=== PATIENT | female | born 1975 | race Caucasian/White ===

== ENCOUNTER 2017-03-02 15:20 | Emergency (ER) | payer OTHER ==
[~2017-03-02] VITALS: Ht 170.2 cm; Wt 73.6 kg
[~2017-03-02 15:20] MED LIST: COZA100T PO; LORA0.5T PO; OXYB5TAB PO
[2017-03-02 15:22] VITALS: BP 170/102; PULSE 74; RESP 12; TEMP 98.2; O2SAT 98
[2017-03-02] MEDS ORDERED: ACETAMINOPHEN 325 MG TAB PO ONE (15:45)
--- NOTE | 2017-03-02 15:50 | PD ---
HPI Chief Complaint: Headache Time Seen by Provider: 15:31 Travel History International Travel<30 days: No Contact w/Intl Traveler<30days: No Traveled to known affect area: No History of Present Illness HPI The patient is a 41-year-old female who presents emergency department for headache. The patient states she struck the left frontal aspect of her head over the left frontal bone and left temporal area yesterday on a cabinet while bending over. The patient states she then drained it once again with a cabinet doors open. She complains of pain over the affected area, now complains of a posterior headache as well as a frontal headache. She does complain of mild nausea but denies any vomiting. She does note mild photophobia, but denies any focal deficits. She does have one previous episode of a similar headache in the past, was told she had a migraine. She denies any weakness or numbness of the upper or lower extremities and denies taking any anticoagulants. The patient has been taking ibuprofen with mild the patient has been taking ibuprofen with mild alleviation of her symptoms. PFSH Past Medical History Asthma: No Blood Disorders: No Anxiety: No Depression: No Heart Rhythm Problems: No Cancer: No Cardiovascular Problems: Yes High Cholesterol: No Chemotherapy: No Chest Pain: No Congestive Heart Failure: No COPD: No Diabetes: No Diminished Hearing: No Endocrine: No Genitourinary: Yes (hx of kidney stones) Hepatitis: No Hiatal Hernia: No Hypertension: Yes Immune Disorder: No Kidney Stones: Yes Musculoskeletal: No Neurologic: No Psychiatric: No Reproductive: Yes Respiratory: No Radiation Therapy: No Sleep Apnea: No Thyroid Disease: No : 2 Para: 2 Past Surgical History AICD: No Section: Yes (X2) Gynecologic Surgery: Yes (x2 c-sections) Joint Replacement: No Pacemaker: No Social History Alcohol Use: Yes (socially) Tobacco Use: Yes (SOCIALLY) Substance Use: No Allergies-Medications (Allergen,Severity, Reaction): Coded Allergies: codeine (Verified Allergy, Unknown, 03/02/17) Reported Meds & Prescriptions Reported Meds & Active Scripts Active Reported Losartan (Losartan Potassium) 100 Mg Tab 100 Mg PO DAILY Review of Systems Except as stated in HPI: all other systems reviewed are Neg General / Constitutional: No: Fever Eyes: Positive: Photophobia, No: Blurred Vision HENT: Positive: Headaches, Neck Pain Cardiovascular: No: Chest Pain or Discomfort Respiratory: No: Shortness of Breath Gastrointestinal: Positive: Nausea, No: Vomiting Neurologic: Positive: Dizziness, Headache, No: Focal Abnormalities, Change in Mentation, Slurred Speech, Paresthesia, Sensory Disturbance Physical Exam Narrative GENERAL: Awake, alert, pleasant 41-year-old female who appears her stated age and is in no acute respiratory distress. SKIN: Focused skin assessment warm/dry. HEAD: Atraumatic. Normocephalic. No obvious cephalohematoma or ecchymosis noted over the left frontal temporal area. EYES: Pupils equal and round. Pupils are 4 mm bilateral and reactive. EOMs are intact. She is able to see fingers at a distance of 2 feet without difficulty. ENT: No nasal bleeding or discharge. Mucous membranes pink and moist. NECK: Trachea midline. No JVD. CARDIOVASCULAR: Regular rate and rhythm. No murmur appreciated. RESPIRATORY: No accessory muscle use. Clear to auscultation. Breath sounds equal bilaterally. MUSCULOSKELETAL: No obvious deformities. No clubbing. No cyanosis. No edema. NEUROLOGICAL: Awake and alert. No obvious cranial nerve deficits. Motor grossly within normal limits. Normal speech. Nonfocal. Oriented 4. Follows commands without difficulty. PSYCHIATRIC: Appropriate mood and affect; insight and judgment normal. Data Data Last Documented VS Vital Signs Date Time Temp Pulse Resp B/P (MAP) Pulse Ox O2 Delivery O2 Flow Rate FiO2 03/02/17 15:56 79 18 98 Room Air 03/02/17 15:54 142/91 (108) 03/02/17 15:[address] Brain W/O Iv Contrast(Rout) (03/02/17 ) Acetaminophen (Tylenol) (03/02/17 15:45) [facility] Medical Decision Making Medical Screen Exam Complete: Yes Emergency Medical Condition: Yes Medical Record Reviewed: Yes Interpretation(s) Last Impressions Head CT 03/02/17 0000 Signed Impressions: Service Date/Time: Thursday, March 02, 2017 15:58 - CONCLUSION: No acute disease. Gerardo Earl MD Differential Diagnosis Differential diagnosis includes concussion, postconcussive syndrome, headache, skull fracture, intracranial hemorrhage, epidural hematoma, subdural hematoma, traumatic subarachnoid hemorrhage, migraine, tension headache. Narrative Course CT of the brain was obtained. The patient was administered Tylenol for pain. CT of the brain is negative. The patient may have postconcussive syndrome, will be treated with Fioricet as needed for pain. She will be provided a copy of her CT results. She is advised to return as needed. She will also be provided Zofran as needed for nausea. She is advised to avoid driving until symptoms resolve. Diagnosis Primary Impression: Cephalgia Qualified Codes: G44.319 - Acute post-traumatic headache, not intractable Additional Impression: Postconcussive syndrome Patient Instructions: General Instructions Additional Instructions: Please provide the patient a copy of her CT results at discharge. Medications as directed. No driving until asymptomatic. Follow-up with your primary physician. Return if symptoms worsen or progress. Med/Other Pt SpecificInfo: Prescription(s) given Scripts Ondansetron Odt (Zofran Odt) 4 Mg Tab 4 MG SL Q6HR Y for Nausea/Vomiting, #10 TAB 0 Refills Prov: Cesar Youngblood MD 03/02/17 Tccgyahryd-Ovxfmibtcatlc-Xxcxvqsu (Fioricet) 50-300-40 Mg Cap 1 CAP PO Q4H Y for HEADACHE, #10 CAP 0 Refills Prov: Cesar Youngblood MD 03/02/17 Disposition: 01 DISCHARGE HOME Condition: Stable Cesar Youngblood MD Mar 02, 2017 15:50
[2017-03-02 15:54] VITALS: BP 142/91; PULSE 84; RESP 18; O2SAT 98
[2017-03-02] MEDS ORDERED: LOSA100T PO (16:00)
--- NOTE | 2017-03-02 16:08 | RADRPT ---
EXAM DATE/TIME: 03/02/2017 15:58 [facility] COMPARISON: CT BRAIN W/O CONTRAST, August 09, 2014, 15:40. INDICATIONS : Trauma to head yesterday, cephalgia and nausea. RADIATION DOSE: 36.13 CTDIvol (mGy) MEDICAL HISTORY : Hypertension. SURGICAL HISTORY : None. ENCOUNTER: Initial ACUITY: 1 day PAIN SCALE: 8/10 LOCATION: Bilateral head TECHNIQUE: Multiple contiguous axial images were obtained of the head. Using automated exposure control and adj ustment of the mA and/or kV according to patient size, radiation dose was kept as low as reasonably a chievable to obtain optimal diagnostic quality images. DICOM format image data is available electro nically for review and comparison. FINDINGS: CEREBRUM: The ventricles are normal for age. No evidence of midline shift, mass lesion, hemorrhage or acute in farction. No extra-axial fluid collections are seen. POSTERIOR FOSSA: The cerebellum and brainstem are intact. The 4th ventricle is midline. The cerebellopontine angle i s unremarkable. EXTRACRANIAL: The visualized portion of the orbits is intact. SKULL: The calvaria is intact. No evidence of skull fracture. CONCLUSION: No acute disease. Gerardo Earl MD on March 02, 2017 at 16:05 Board Certified Radiologist. This report was verified electronically.
[2017-03-02] MEDS ORDERED: ZOFR4TAB3 SL (16:20)
[2017-03-02] MEDS ORDERED: BUTA1CAP PO (16:20)
== END 2017-03-02 16:41 | disposition home or self-care (01) ==
LOC: NEPE 15:20
DX: R51 Headache (principal); F07.81 Postconcussional syndrome; R11.0 Nausea; H53.149 Visual discomfort, unspecified; I10 Essential (primary) hypertension; Z72.0 Tobacco use; Z88.5 Allergy status to narcotic agent; Z87.442 Personal history of urinary calculi; Z79.899 Other long term (current) drug therapy
CPT/HCPCS: 70450; 99284